=== PATIENT | female | born 1965 | race Caucasian/White ===

== ENCOUNTER → 2020-09-15 15:13 | Outpatient (CLI) | payer OTHER, SELFPAY ==
--- NOTE | 2020-09-15 15:22 | XR_ITS ---
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 The distal phalanges are missing of the 1st 2nd 3rd digits. No acute fracture or dislocation. There are osteoarthritic changes of the scapho trapezium joint. 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 No acute fracture. Dictated by: Malcolm Dia MD 09/16/2020 05:16 Malcolm Dia MD in [place] 09/16/2020 05:16
== END ==
PROVIDERS: PCP Emergency Medicine; Visit Provider Emergency Medicine
DX: M79.642 Pain in left hand (principal)
CPT/HCPCS: 73130

== ENCOUNTER 2020-10-18 15:00 | Outpatient (RCR) | payer BC, SELFPAY ==
--- NOTE | 2020-09-27 16:02 | HMH.OTOPEV ---
OT Inpatient Evaluation Rehab OT Outpatient Eval Start: 09/27/20 15:45 Freq: Status: Active Protocol: Document 09/27/20 15:45 JING (Rec: 09/27/20 16:02 ROBBELINDA [id number]) Electronically Signed By Ni Saldaña OT 09/27/20 15:45 Outpatient Therapy Subjective History Subjective History 55 year old female referred to OP OT skilled services for L shoulder weakness. Patient exhibit L shoulder to be lower than right. Patient verbalize pain during pushing and pulling items during work hours. 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 Chief Complaint Pain Symptom Type Ache Symptoms Relieved By Nothing Symptoms Aggravated By Physical Activity,Lifting Prior Functional Limitations None Current Functional Limitations Reaching,Lifting,Recreation Activity Symptom Description Intermittent Level of pain today (0-10) 0 Pain scale - at its best (0-10) 0 Pain scale - at its worst (0-10) 5 Shoulder/Elbow Eval Shoulder Objective Measurements Shoulder ROM Left Shoulder Abduction Active Range of 100 Motion (degrees) Shoulder Flexion Active Range of Motion 100 (degrees) Query Text: Shoulder External Rotation Active Range 60 of Motion (degrees) Shoulder Internal Rotation Active Range 60 of Motion (degrees) Shoulder MMT Right Shoulder Abduction Strength Grade 3- Fair- Shoulder Extension Strength Grade 3- Fair- Shoulder Flexion Strength Grade 3- Fair- Shoulder Horizontal Adduction Strength 3- Fair- Grade Infraspinatus/Teres Minor Strength Grade 3- Fair- Shoulder External Rotation Strength 3- Fair- Grade Shoulder Internal Rotation Strength 3- Fair- Grade Elbow Objective Measurements OT Outpatient Assessment Impairments Problems/Impairments Impaired Range of Motion, Impaired Strength,Impaired Endurance,Impaired Lifting, Subjective C/O Pain Prognosis Rehab Potential Good Clinical Impression Consistent with Diagnosis Yes Short Term Goals Number of Weeks 2 Increase Range of Motion Yes: AROM of L UE flex: 120;
--- NOTE | 2020-10-06 14:20 | HMH.OTOPEV ---
OT Inpatient Evaluation Rehab OT Outpatient Eval Start: 09/27/20 15:45 Freq: Status: Active Protocol: Document 09/27/20 15:45 ROBBELINDA (Rec: 09/27/20 16:02 ROBBELINDA [id number]) Electronically Signed By Ni Saldaña OT 09/27/20 15:45 Outpatient Therapy Subjective History Subjective History 55 year old female referred to OP OT skilled services for L shoulder weakness. Patient exhibit L shoulder to be lower than right. Patient verbalize pain during pushing and pulling items during work hours. 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 Patient verbalize insurance has denied MRI x2. However Patient is in need for MRI for suspected rotator cuff tear in L shoulder. Chief Complaint Pain Symptom Type Ache Symptoms Relieved By Nothing Symptoms Aggravated By Physical Activity,Lifting Prior Functional Limitations None Current Functional Limitations Reaching,Lifting,Recreation Activity Symptom Description Intermittent Level of pain today (0-10) 0 Pain scale - at its best (0-10) 0 Pain scale - at its worst (0-10) 5 Shoulder/Elbow Eval Shoulder Objective Measurements Shoulder ROM Left Shoulder Abduction Active Range of 100 Motion (degrees) Shoulder Flexion Active Range of Motion 100 (degrees) Query Text: Shoulder External Rotation Active Range 60 of Motion (degrees) Shoulder Internal Rotation Active Range 60 of Motion (degrees) Shoulder MMT Right Shoulder Abduction Strength Grade 3- Fair- Shoulder Extension Strength Grade 3- Fair- Shoulder Flexion Strength Grade 3- Fair- Shoulder Horizontal Adduction Strength 3- Fair- Grade Infraspinatus/Teres Minor Strength Grade 3- Fair- Shoulder External Rotation Strength 3- Fair- Grade Shoulder Internal Rotation Strength 3- Fair- Grade Elbow Objective Measurements OT Outpatient Assessment Impairments Problems/Impairments Impaired Range of Motion, Impaired Strength,Impaired Endurance,Impaired Lifting,
== END 2020-10-18 15:05 | disposition home or self-care (01) ==
LOC: OT 15:00
PROVIDERS: PCP Emergency Medicine; Visit Provider Emergency Medicine
DX: R29.898 Other symptoms and signs involving the musculoskeletal system; R53.1 Weakness
CPT/HCPCS: 97014; 97110; 97140; 97165; 97530; G0283

== ENCOUNTER → 2020-10-20 07:54 | Outpatient (CLI) | payer BC, SELFPAY ==
--- NOTE | 2020-10-20 07:55 | MR_ITS ---
PROCEDURE: MR BRACHIAL PLEXUS LT WO CON CLINICAL INDICATION: plexopathy PT C/O LEFT SIDED NECK AND ARM PAIN. PT DENIES INJURY OR TRAUMA. PT HAS A LEFT HAND DEFORMITY AND ORDER STATES PLEXOPATHY AND PT STATES DOCTOR SAID SHE HAD WINGING OF LEFT POSTERIOR NECK AND UPPER BACK. The COMPARISON: No exams were available for comparison TECHNIQUE: Routine multiplanar multi echo sequences are performed without gadolinium enhancement. FINDINGS: Patient has known multilevel cervical spondylosis as seen on the recent MRI of the cervical spine. Please see that report for detail. No evidence of mass abnormal fluid collection or other significant anomaly in the brachial plexus region IMPRESSION: Unremarkable MRI the left brachial plexus. Dictated by: Malcolm Dia MD 10/25/2020 09:18 Malcolm Dia MD in [place] 10/25/2020 09:18
--- NOTE | 2020-10-20 07:55 | MR_ITS ---
PROCEDURE: MR CERVICAL SPINE WO CON CLINICAL INDICATION: left arm pain, weakness PT C/O LEFT SIDED NECK AND ARM PAIN. PT DENIES INJURY OR TRAUMA. PT HAS A LEFT HAND DEFORMITY AND ORDER STATES PLEXOPATHY AND PT STATES DOCTOR SAID SHE HAD WINGING OF LEFT POSTERIOR NECK AND UPPER BACK. COMPARISON: No exams were available for comparison TECHNIQUE: Standard multiplanar multiecho sequences are performed without contrast. 3-D MIP and myelographic images are also rendered and reviewed FINDINGS: The craniocervical junction has an unremarkable appearance. There is slight reversal of the cervical lordosis. C2-C3: Unremarkable. C3-C4: Minimal bulging disc without impingement. The bulging disc is very slightly eccentric toward the left. C4-C5: Unremarkable. C5-C6: Degenerative disc disease with bulging disc which is eccentric toward the left. There is canal stenosis of 9 mm with minimal impingement and contour deformity upon the central and left aspect of the cord. There is moderate left lateral recess and foraminal narrowing. C6-C7: Degenerate disc disease with mild bulging disc with canal stenosis of 8 mm without impingement or flattening of the cord. There is moderate left-sided foraminal narrowing from uncovertebral hypertrophy and mild right foraminal narrowing. C7-T1: Unremarkable. IMPRESSION: 1. There is multilevel cervical spondylosis with slight reversal cervical lordosis. Please see above for detailed description at each level. 2. C5-C6: Degenerative disc disease with bulging disc which is eccentric toward the left. There is canal stenosis of 9 mm with minimal impingement and contour deformity upon the central and left aspect of the cord. There is moderate left lateral recess and foraminal narrowing. 3. C6-C7: Degenerate disc disease with mild bulging disc with canal stenosis of 8 mm without impingement or flattening of the cord. There is moderate left-sided foraminal narrowing from uncovertebral hypertrophy and mild right foraminal narrowing 4. No extruded herniated disc. Dictated by: Malcolm Dia MD 10/21/2020 19:42 Malcolm Dia MD in [place] 10/21/2020 19:42
== END ==
PROVIDERS: PCP Emergency Medicine; Visit Provider Specialist
DX: M79.622 Pain in left upper arm (principal); R29.898 Other symptoms and signs involving the musculoskeletal system
CPT/HCPCS: 72141; 73218; 76376

== ENCOUNTER 2020-12-08 09:01 | Outpatient (RCR) | payer BC, SELFPAY ==
--- NOTE | 2020-12-08 11:13 | HMH.PTOPEV ---
PT Outpatient Evaluation Rehab PT Outpatient Evaluation Start: 12/08/20 09:18 Freq: Status: Active Protocol: Document 12/08/20 10:47 ADDI (Rec: 12/08/20 11:13 PHORBERHANE [id number]) Electronically Signed By Jun Bobby, PT 12/08/20 10:47 Outpatient Therapy Subjective History Subjective History Pt is 55 yowf who presents with c/o pain anweakness in the L shld and UE x ~ 1 yr with insidious onset of symptoms. She reports hx of C- spine pain which has significantly decreased with activity changes. She reports he worst problems now are weakness with occupational lifting and pain in the L shld . SHe has congenital defect of the L hand that she attributes to changing her lifting habits over time with the L UE. She had MRI of C- spine performed which showed C3-4, C5-6, C6-7 disc bulges with DDD. EMG performed 2019 was unremarkable. Chief Complaint Pain,Weakness Symptom Type Ache Symptoms Relieved By Rest/Positioning Symptoms Aggravated By Physical Activity,Lifting Prior Functional Limitations None Current Functional Limitations Reaching,Lifting Symptom Description Intermittent,Activity Dependent Level of pain today (0-10) 0 Pain scale - at its worst (0-10) 7 Cervical Eval Palpation Cervical Muscles L Upper Trapezius Cervical/Thoracic Palpation Findings Tenderness MMT Left Deltoid (C5) 3+ Fair+ Biceps Brachii Strength Grade 4 Good Wrist Extension Strength Grade 4 Good Triceps Brachii Strength Grade 4 Good Wrist Flexion Strength Grade 4 Good Special Test C-Spine Foraminal Compression ([place]) Negative Left,Negative Right Test C-spine Verterbral Accessory Movements [facility] [place] that Elicit Symptoms C-Spine Foraminal Distraction Test Negative C-Spine Compression Test Negative Left,Negative Right Shoulder/Elbow Eval Shoulder Objective Measurements Shoulder MMT Left Shoulder Abduction Strength Grade 3+ Fair+ Shoulder External Rotation Strength 3+ Fair+ Grade Shoulder Internal Rotation Strength 3+ Fair+ Grade Supraspinatus Strength Grade 3 Fair Shoulder Special Tests
== END 2020-12-08 09:05 | disposition home or self-care (01) ==
LOC: PT 09:01
PROVIDERS: PCP Emergency Medicine; Visit Provider Specialist
DX: M54.2 Cervicalgia (principal); M54.12 Radiculopathy, cervical region; M62.81 Muscle weakness (generalized)
CPT/HCPCS: 97035; 97110; 97163

== ENCOUNTER → 2020-12-22 08:29 | Outpatient (CLI) | payer BC, SELFPAY ==
--- NOTE | 2020-12-22 08:33 | XR_ITS ---
PROCEDURE: XR SHOULDER LT MIN 2V CLINICAL INDICATION: left shoulder pain COMPARISON: No exams were available for comparison FINDINGS: No fracture or dislocation. No lytic or blastic change. There is normal mineralization. There are mild osteoarthritic changes at the glenohumeral joint and acromioclavicular joint. There is mild subacromial stenosis. Other findings:None. IMPRESSION: Mild osteoarthritis of the shoulder Dictated by: Malcolm Dia MD 12/22/2020 11:31 Malcolm Dia MD in [place] 12/22/2020 11:31
== END ==
PROVIDERS: PCP Emergency Medicine; Visit Provider Orthopaedic Surgery
DX: M25.512 Pain in left shoulder (principal)
CPT/HCPCS: 73030

== ENCOUNTER → 2021-01-18 13:59 | Outpatient (CLI) | payer BC, SELFPAY | PROVIDERS: PCP Emergency Medicine; Visit Provider Neurological Surgery | DX: Z20.822 Contact with and (suspected) exposure to COVID-19 (principal) | CPT/HCPCS: U0003 ==

== ENCOUNTER → 2021-03-11 10:10 | Outpatient (CLI) | payer BC, SELFPAY ==
[2021-03-11 10:34] LABS: Basophils % 0.2 % (0.1-2.0); Eosinophils # 0.1 K/mm3 (0.0-0.4); Eosinophils % 0.8 % (0.1-12.0); Hematocrit 39.7 % (37.0-47.0); Hemoglobin 13.2 g/dL (12.2-16.2); Lymphocytes # 1.6 K/mm3 (0.7-4.5); Lymphocytes % 17.8 % (10-50); Mean Corpuscular HGB Conc 33.2 g/dL (31.8-35.4); Mean Corpuscular Hemoglobin 30.7 pg (27.0-31.2); Mean Corpuscular Volume 92.4 fl (81-99); Mean Platelet Volume 6.9 fl (7.4-10.4); Monocytes # 0.6 K/mm3 (0.1-1.0); Neutrophils # 6.9 K/mm3 (1.8-7.8); Neutrophils % 75.2 % (37.0-80.0); Platelet Count 400 K/mm3 (142-424); White Blood Count 9.1 K/mm3 (4.8-10.8)
[2021-03-11 11:31] LABS: Chloride 102 mmol/L (98-107); Potassium 5.1 mmoL/L (3.5-5.1); Sodium 138 mmol/L (136-145)
[2021-03-11 11:34] LABS: Anion Gap 12.1 mEq/L (5-15); Blood Urea Nitrogen 16 mg/dl (7-17); Carbon Dioxide 29 mmol/L (22.0-30.0); Estimated Glomerular Filt Rate 74 ml/min (>60); GFR (African American) 89 ML/MIN (>60)
[2021-03-11 11:35] LABS: Calcium 10.2 mg/dl (8.4-10.2); Glucose 99 mg/dl (74-100)
== END ==
PROVIDERS: Visit Provider Orthopaedic Surgery
DX: Z01.818 Encounter for other preprocedural examination (principal); I10 Essential (primary) hypertension; G89.29 Other chronic pain; M25.512 Pain in left shoulder
CPT/HCPCS: 36415; 80048; 85025

== ENCOUNTER → 2021-03-22 11:15 | Outpatient (CLI) | payer BC, SELFPAY ==
[2021-03-22 12:17] LABS: Basophils % 0.5 % (0.1-2.0); Eosinophils # 0.1 K/mm3 (0.0-0.4); Eosinophils % 1.3 % (0.1-12.0); Hematocrit 42.6 % (37.0-47.0); Hemoglobin 13.9 g/dL (12.2-16.2); Lymphocytes # 2.4 K/mm3 (0.7-4.5); Lymphocytes % 39.4 % (10-50); Mean Corpuscular HGB Conc 32.7 g/dL (31.8-35.4); Mean Corpuscular Volume 91.7 fl (81-99); Mean Platelet Volume 6.6 fl (7.4-10.4); Monocytes # 0.5 K/mm3 (0.1-1.0); Monocytes % 8.3 % (1.7-9.3); Neutrophils # 3.1 K/mm3 (1.8-7.8); Neutrophils % 50.4 % (37.0-80.0); Platelet Count 414 K/mm3 (142-424); Red Blood Count 4.64 M/mm3 (4.20-5.40); White Blood Count 6.1 K/mm3 (4.8-10.8)
[2021-03-22 12:41] LABS: Chloride 101 mmol/L (98-107); Sodium 137 mmol/L (136-145)
[2021-03-22 12:42] LABS: Potassium 5.1 mmoL/L (3.5-5.1)
[2021-03-22 12:44] LABS: Blood Urea Nitrogen 19 mg/dl (7-17); Estimated Glomerular Filt Rate 74 ml/min (>60); GFR (African American) 89 ML/MIN (>60)
[2021-03-22 12:45] LABS: Anion Gap 13.1 mEq/L (5-15); Carbon Dioxide 28 mmol/L (22.0-30.0); Glucose 73 mg/dl (74-100)
[2021-03-22 12:45] LABS: Alanine Aminotransferase 19 U/L (12-78); Albumin Level 4.8 g/dl (3.5-5.0); Alkaline Phosphatase 90 U/L (38-126); Aspartate Amino Transferase 31 U/L (14-36); Bilirubin,Direct 0.3 mg/dl (0.0-0.4); Bilirubin,Indirect 0.3 mg/dL (0.0-0.9); Bilirubin,Total 0.6 mg/dl (0.2-1.3); Bilirubin,Unconjugated 0.4 mg/dL (0.0-1.1); Iron 139 ug/dL (37-170); Total Protein,Serum 7.4 g/dl (6.3-8.2)
[2021-03-22 12:55] LABS: Total Iron Binding Capacity 300 ug/dL (265-497)
[2021-03-22 13:21] LABS: Ferritin 48.7 ng/ml (11.1-264)
[2021-03-23 13:49] LABS: Coronavirus 19 IgG Antibody Positive (Negative); Coronavirus 19 IgM Antibody Negative (Negative)
[2021-03-23 14:19] LABS: Transferrin 264 mg/dL (192-364)
== END ==
PROVIDERS: Orthopaedic Surgery; Visit Provider Physician Assistant
DX: Z01.818 Encounter for other preprocedural examination (principal); Z20.822 Contact with and (suspected) exposure to COVID-19; R05 Cough; I10 Essential (primary) hypertension; Z83.49 Family history of other endocrine, nutritional and metabolic diseases
CPT/HCPCS: 36415; 80048; 80076; 82728; 83540; 83550; 84466; 85025; 86328; U0003

== ENCOUNTER 2021-03-24 06:09 | Day surgery (SDC) | payer BC, SELFPAY ==
[2021-03-22 15:21] VITALS: BMI 26.6
[2021-03-24] VITALS (11 sets, daily range): BP systolic 149–169; BP diastolic 86–95; PULSE 91–98; RESP 12–18; TEMP 36.2–43; O2SAT 92–100
--- NOTE | 2021-03-24 08:51 | HMH.ANESCL ---
[facility] Anesthesia Checklist - Structural Data Admitted From: Home Planned Operative Procedure/s: l shoulder arthroscopy Consent for Planned Operative Procedure(s) Verified: Yes - Additional verifications Anesthesia Reactions: No Hx Blood Transfusions: No Blood Transfusion Reaction: No - Airway Assessment C-Spine Mobility Assessed: Yes TMJ Mobility Assessed: Yes Dentition: Good Dentition - Neurological Assessment Level of Consciousness: Awake, Alert, Appropriate - Anesthesia Plan Anesthesia Risk discussed: Yes Anesthesia Plan: Verified ASA Class: II Anesthesia Type: General w/block [facility] History I have reviewed the patient's past medical history: Yes Medical History: Reports:: Anxiety, Depression, Hypertension Denies:: Cancer, Diabetes Mellitus Type 1, Diabetes Mellitus Type 2, Internal Pacemaker, MRSA, Seizures *Have you ever received a pneumonia vaccine?: No *Have you received a flu vaccine this season?: Yes Other Medical History: Denies: Blood Transfusion Reaction Anesthesia experience/problems:: none Other Surgeries: Yes: No Previous Surgery, Colonoscopy, Other. No: Pacemaker Amputation: Yes (left hand fingers) Fractures: No - *Social History Last grade of school completed: Some college Smoking Status: Never smoker Alcohol Intake: current Alcohol Intake Frequency:: a few times a month Substance Use Type: denies use *Occupational Status:: employed Housing: house Household Members: spouse *Travel in the last 8 weeks: None - Psychiatric History Pschychiatric History:: Reports:: Anxiety, Depression Family Hx:: Cancer, Hypertension, Diabetes
--- NOTE | 2021-03-24 10:58 | HMH.ANESI ---
[facility] Anesthesia Record Part I Intake, IV Amount: 1,800 Estimated blood loss (mL): 0 Urine output (mL): 0 Blood Pressure: 160/94 SaO2: 95 Pulse Rate: 97 Respiratory Rate: 12 Temperature: 97.5 F Patient is:: Awake, Stable Stable to PACU at:: 10:55
--- NOTE | 2021-03-24 12:20 | SUR.PHASEII ---
PT'S L EYE STILL IRRITATED. NO OBJECT SEEN IN EYE OR REASON FOR IRRITATION. PT WILL MONITOR AT HOME.
--- NOTE | 2021-03-24 14:31 | HMH.OPNOTE ---
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, acromioclavicular joint arthritis Post-op Diagnosis:: L shoulder: 1- tendinopathy of long head of biceps tendon 2- type 1 SLAP tear 3- subacromial bursitis/capsulitis 4- acromioclavicular joint arthritis 5- rotator cuff tear; small, high-grade partial thickness split tear of supraspinatus Procedure performed:: L shoulder arthroscopy with: 1- biceps tenotomy 2- subacromial decompression and acromioplasty 3- arthroscopic distal clavicle excision 4- arthroscopic rotator cuff repair Surgeon:: Deonna Gould MD Assistant Professor Of Life Sciences(s):: Yudith Smith HOSPITAL SCIENTIST:: Trevin Best Anesthesia: GETA, regional (interscalene block) Estimated blood loss (mL): 10 Clinical Note:: 55-year-old [id number] female with chronic L shoulder pain present for over 1 year and refractory to non-operative therapy consisting of physical therapy, ice, NSAIDs and activity modification. Additionally, she underwent ACDF recently for radiculopathy caused by cervical spine pathology; this did not completely relieve her pain and the shoulder became the primary source of pain. MRI revealed degenerative changes of the acromioclavicular joint as well as marked atrophic tendinopathy of the rotator cuff, particularly the supraspinatus tendon; no discrete tear seen on MRI. I discussed treatment options with the patient, who wished to pursue surgery at this time. The patient has been cleared by Dr. Caceres after her cervical spine procedure to proceed with shoulder surgery. I discussed the procedure with the patient including the intraoperative goals/technique, expected postoperative rehab and long-term outcome. My recommendation would be left shoulder arthroscopy, subacromial decompression with conservative acromioplasty as needed, biceps tenotomy versus tenodesis based upon intraoperative examination of the tendon, distal clavicle excision. Additionally, the rotator cuff will be examined and treated accordingly. She has atrophic tendinopathy on MRI and if high-grade partial tearing is seen at the time of surgery repair versus tear completion and full-thickness repair may be required. I discussed the scapular winging that she is currently experiencing and that this will be something that needs to be treated with physical therapy postoperatively. If this does not respond to therapy, neurologic issue may need to be investigated as she has had cervical spine issues and recently underwent cervical fusion. I discussed the risks of surgery with the patient, including bleeding, infection, fracture, neurovascular damage, persistent pain despite surgery, persistent weakness despite surgery, postoperative stiffness, need for further surgeries in the future. The patient vocalized understanding and provided informed consent for the procedure. Operative findings:: implants: Arthrex 4.75mm biocomposite SwiveLock C anchor x1 FiberTape x1 Operative note:: The patient was identified in preoperative holding and the L shoulder signed by myself. Consent was reviewed with the patient and all questions answered. Interscalene nerve block was performed by anesthesia and the patient was taken to the OR. She was placed supine on the operative table, 1 g Ancef infused and general anesthesia induced. The patient was then positioned into the beachchair position with the head in a neutral position and well supported with all bony prominences padded. The L shoulder was then prepped and draped in the usual sterile fashion for shoulder arthroscopy. Timeout was performed, identifying the correct patient, correct procedure, and correct site. I began the procedure by making a standard posterior viewing portal through which a 30 degree arthroscope was inserted into the L shoulder. I began with a diagnostic scope of the glenohumeral joint. A moderate amount of superior labral fraying was noted and a type I SLAP tear. Us
--- NOTE | 2021-03-25 07:51 | P.PN_ITS ---
[facility] Anesthesia Record Part II Discharge Time: 11:25 Destination: Surgical Day Care (OP Surgery) PACU nurse assessment reviewed?: Yes Patient Condition:: Good Anesthesia Complications:: None Swallowing reflex intact?: Yes Cyanosis?: No Blood Pressure: 158/95 Pulse Rate: 94 Temperature: 97.5 F Mental Status: Alert & Oriented Pain level:: 0 Nausea and/or vomitting:: None Intake, IV Amount: 0
[2021-03-25 07:52] VITALS: BP 158/95; PULSE 94; TEMP 36.4
== END 2021-03-24 12:20 | disposition home or self-care (01) ==
LOC: OR 06:09
PROVIDERS: PCP Emergency Medicine; Visit Provider Orthopaedic Surgery
PROC: (CPT 29805; principal; 2021-03-24 07:30)
DX: M75.112 Incomplete rotator cuff tear or rupture of left shoulder, not specified as traumatic (principal); M19.012 Primary osteoarthritis, left shoulder; M75.52 Bursitis of left shoulder; M75.22 Bicipital tendinitis, left shoulder; Z79.899 Other long term (current) drug therapy
CPT/HCPCS: 29827; 29828; 29826; 96374; C1713; C9290; J2405

== ENCOUNTER → 2021-06-22 10:08 | Outpatient (CLI) | payer BC, SELFPAY ==
--- NOTE | 2021-06-22 10:13 | XR_ITS ---
PROCEDURE: XR SHOULDER LT MIN 2V CLINICAL INDICATION: s/p left shoulder scope Follow-up surgery COMPARISON: CR XR SHOULDER LT MIN 2V from 12/22/2020 FINDINGS: The spurring along the inferior aspect of the AC joint appears to been removed. No fracture or dislocation. Minimal osteoarthritic change of the glenohumeral joint.. IMPRESSION: Status post AC osteophyte removal with mild osteoarthritic change of the glenohumeral joint Dictated by: Malcolm Dia MD 06/22/2021 11:50 Malcolm Dia MD in [place] 06/22/2021 11:50
== END ==
PROVIDERS: PCP Emergency Medicine; Visit Provider Orthopaedic Surgery
DX: Z09 Encounter for follow-up examination after completed treatment for conditions other than malignant neoplasm (principal)
CPT/HCPCS: 73030

== ENCOUNTER → 2021-06-29 12:34 | Outpatient (CLI) | payer BC, SELFPAY ==
[2021-06-29 14:06] LABS: Blood Urea Nitrogen 17 mg/dl (7-17); Estimated Glomerular Filt Rate 57 ml/min (>60); GFR (African American) 69 ML/MIN (>60)
== END ==
PROVIDERS: Visit Provider Orthopaedic Surgery
DX: M25.512 Pain in left shoulder (principal)
CPT/HCPCS: 36415; 82565; 84520

== ENCOUNTER → 2021-06-30 09:06 | Outpatient (CLI) | payer BC, SELFPAY ==
--- NOTE | 2021-06-30 09:06 | MR_ITS ---
PROCEDURE INFORMATION: Exam: MR Left Upper Extremity Joint Without and With Contrast; Shoulder Exam date and time: 06/30/2021 9:06 AM Age: 55 years old Clinical indication: Pain; Shoulder; Left; Prior surgery; Surgery date: 1-6 months; Additional info: Lt shoulder pain; S/P shoulder scope 03/24/21. HX surgery March 24 rotator cuff. Limited rom. Weakness in arm. No injury or trauma. Prior MR 12-24-20. 14ml prohance given. Lot: [id number] exp: May 2023 bun: 17 cre: 1.0 gfr: 57 TECHNIQUE: Imaging protocol: MR of the Left upper extremity without and with contrast. Exam focused on the shoulder. Contrast material: PROHANCE; Contrast volume: 14 ml; Contrast route: IV; COMPARISON: 1. MR UE SHOULDER LEFT W/O CON [id number] 12/24/2020 4:55 PM (no report; preoperative) 2. CR XR SHOULDER LT MIN 2V 06/22/2021 10:23 AM 3. CR XR SHOULDER LT MIN 2V 12/22/2020 8:38 AM FINDINGS: Limitations: Severe external rotation of the shoulder producing nonstandard imaging planes. Bones and cartilage: Surgical tracks in the humeral head are consistent with prior rotator cuff repair. The undersurface of the acromion is flattened, suggestive of prior acromioplasty. Mild bone marrow edema involving the humeral head is within normal limits for the recent postoperative state. Joint spaces: Flattening of the acromioclavicular joint undersurface suggests prior partial acromioclavicular joint resection. Moderate edema involving the partially resected distal clavicle would not be unusual in the relatively recent time since surgery. A moderate effusion involves the glenohumeral joint. Joint fluid extends through the full thickness rotator cuff tear into the subacromial-subdeltoid bursa. Glenoid labrum: Heterogeneity of the labrum signal may be due to degeneration or debridement. Supraspinatus tendon: A large full-thickness retear involves the previously repaired supraspinatus tendon. The tear involves approximately 80% of the tendon. The tendon is retracted to the mid humeral head level. Infraspinatus tendon: A full-thickness tear involves the upper one-third of the infraspinatus tendon with less than 1 cm of retraction. Subscapularis tendon: Severe tendinosis involves the subscapularis tendon. Teres minor tendon: No tear or significant tendinosis involves the teres minor tendon. Tendon of biceps brachii: The intra-articular portion of the long head of the biceps tendon is not visualized. This may represent tenodesis, unusually severe tendinosis or full-thickness tear. Glenohumeral ligaments: Edema in the axillary recess region including the inferior glenohumeral ligament is not unusual in the recent postoperative state. Muscles: The infraspinatus muscle demonstrates grade 1 (out of 4) muscle atrophy. Mild edema involves the supraspinatus muscle. The remainder of the rotator cuff musculature demonstrates no significant atrophy or edema. There are normal postoperative changes in the deltoid muscle. Soft tissues: There are normal postoperative punctate foci of micrometallic artifact in the soft tissues. IMPRESSION: 1. Interval postoperative changes of the shoulder. 2. Full-thickness supraspinatus tendon retear involving approximately 80% of the tendon with retraction to the mid humeral head level and no significant muscle atrophy. 3. Full-thickness infraspinatus tendon tear involving the superior one third of the tendon with less than 1 cm retraction and minimal muscle atrophy. 4. Nonvisualization of the intra-articular portion of the long head of the biceps tendon, which may represent tenodesis, unusually severe tendinosis or full-thickness tear. 5. Mary Kate
== END ==
PROVIDERS: PCP Emergency Medicine; Visit Provider Orthopaedic Surgery
DX: M25.512 Pain in left shoulder (principal)
CPT/HCPCS: 73223; A9576

== ENCOUNTER → 2022-04-04 11:43 | Outpatient (CLI) | payer BC, SELFPAY ==
--- NOTE | 2022-04-04 11:49 | XR_ITS ---
FINAL REPORT CLINICAL HISTORY: right ankle pain FINDINGS: AP, oblique, and lateral views of the right ankle were obtained. There is no prior exam for comparison. There is no fracture or dislocation. The ankle mortise is intact. Soft tissues are normal. IMPRESSION: No acute osseous abnormality of the right ankle. Reviewed, Interpreted and Dictated by Hannah Oquendo MD Transcribed by Alecia Sterling Authenticated by Hannah Oquendo MD on 04/04/2022 01:56:[address] [facility]
--- NOTE | 2022-04-04 11:49 | XR_ITS ---
FINAL REPORT CLINICAL HISTORY: right ankle pain FINDINGS: RIGHT FOOT Three views were obtained. There is a lucency through an inferior calcaneal spur, slightly subtle fracture is not excluded. No acute soft tissue abnormality is identified. IMPRESSION: Lucency through a calcaneal spur, subtle fracture is not excluded. Consider MRI. Reviewed, Interpreted and Dictated by Hannah Oquendo MD Transcribed by Alecia Sterling Authenticated by Hannah Oquendo MD on 04/04/2022 01:56:51 PM [facility]
[2022-04-04 12:50] LABS: Basophils # 0.2 K/mm3 (0-0.2); Basophils % 2.4 % (0.1-2.0); Eosinophils # 0.1 K/mm3 (0.0-0.4); Eosinophils % 1.4 % (0.1-12.0); Hematocrit 41.4 % (37.0-47.0); Hemoglobin 13.4 g/dL (12.2-16.2); Lymphocytes % 32.9 % (10-50); Mean Corpuscular HGB Conc 32.4 g/dL (31.8-35.4); Mean Corpuscular Hemoglobin 31.3 pg (27.0-31.2); Mean Corpuscular Volume 96.4 fl (81-99); Monocytes # 0.5 K/mm3 (0.1-1.0); Monocytes % 7.6 % (1.7-9.3); Neutrophils # 3.4 K/mm3 (1.8-7.8); Neutrophils % 55.6 % (37.0-80.0); Platelet Count 380 K/mm3 (142-424); Red Blood Count 4.29 M/mm3 (4.20-5.40); Red Cell Distribution Width 13.1 % (11.5-17.5); White Blood Count 6.1 K/mm3 (4.8-10.8)
[2022-04-04 12:59] LABS: Alanine Aminotransferase 24 U/L (12-78); Albumin Level 4.3 g/dl (3.5-5.0); Albumin/Globulin Ratio 1.7 (1.1-1.8); Alkaline Phosphatase 112 U/L (38-126); Anion Gap 8.2 mEq/L (5-15); Aspartate Amino Transferase 32 U/L (14-36); Blood Urea Nitrogen 20 mg/dl (7-17); Calcium 9.1 mg/dl (8.4-10.2); Carbon Dioxide 29 mmol/L (22.0-30.0); Chloride 101 mmol/L (98-107); Chol/HDL Ratio 2.3 (1-3.5); Cholesterol 230 mg/dl (140-200); Estimated Glomerular Filt Rate 74 ml/min (>60); GFR (African American) 89 ML/MIN (>60); Globulin 2.5 g/dL (1.3-3.2); Glucose 92 mg/dl (74-100); HDL Cholesterol 101 mg/dl (40-60); Potassium 4.2 mmoL/L (3.5-5.1); Sodium 134 mmol/L (136-145); Total Protein,Serum 6.8 g/dl (6.3-8.2); Triglycerides 118 mg/dl (30-150); VLDL Cholesterol 24 mg/dL (0-40)
[2022-04-04 13:01] LABS: Bilirubin,Total < 0.1 mg/dl (0.2-1.3)
[2022-04-04 13:10] LABS: Direct LDL Cholesterol 98.97 mg/dL (100-129)
[2022-04-04 13:19] LABS: 25-OH Vitamin D, Total 56.1 ng/mL (30-100)
[2022-04-04 13:29] LABS: Thyroid Stimulating Hormone 1.62 uIU/mL (0.465-4.68)
== END ==
PROVIDERS: PCP Physician Assistant; Visit Provider Physician Assistant
DX: M25.571 Pain in right ankle and joints of right foot (principal); I10 Essential (primary) hypertension; Z79.899 Other long term (current) drug therapy
CPT/HCPCS: 36415; 73610; 73630; 80053; 80061; 82306; 84443; 85025

== ENCOUNTER → 2022-06-01 14:57 | Outpatient (CLI) | payer BC, SELFPAY ==
--- NOTE | 2022-06-01 15:07 | XR_ITS ---
FINAL REPORT CLINICAL HISTORY: left knee pain and swelling FINDINGS: LEFT KNEE Four views of the left knee were obtained. There is no acute fracture or dislocation. Visualized joint spaces are normally aligned. There is mild degenerative change. There is a small joint effusion. IMPRESSION: Mild degenerative change. Small joint effusion. Reviewed, Interpreted and Dictated by Zach Ornelas III, MD Transcribed by Floresita Reyes Authenticated and . [facility]
== END ==
PROVIDERS: PCP Physician Assistant; Visit Provider Physician Assistant
DX: M25.562 Pain in left knee (principal); M25.462 Effusion, left knee
CPT/HCPCS: 73564

== ENCOUNTER → 2022-06-12 13:45 | Outpatient (CLI) | payer BC, SELFPAY ==
--- NOTE | 2022-06-12 13:45 | MR_ITS ---
FINAL REPORT CLINICAL HISTORY: Knee injury. knee instability [id number] ago. medial sided knee pain. no injury or trauma. FINDINGS: Multiplanar MR imaging of the right knee was performed without contrast. The medial and lateral menisci are intact without evidence of meniscal tear. The anterior cruciate ligament is not well seen and likely chronically torn. The posterior cruciate ligament is intact. The medial collateral ligament and lateral ligamentous complex are intact. The patellar and quadriceps tendons are intact. There is a nondisplaced fracture of the posterior aspect of the medial tibial plateau with surrounding bone marrow edema. There is moderate patellar chondromalacia. A small joint effusion is seen. The musculature is intact. No soft tissue mass or cyst is identified. IMPRESSION: Nondisplaced fracture of the posterior medial tibial plateau with surrounding bone marrow edema. Anterior cruciate ligament not well visualized and likely chronically torn. Moderate patellar chondromalacia. Small joint effusion. Reviewed, Interpreted and Dictated by Zach Ornelas III, MD Transcribed by Michele Palmer Authenticated and [facility]
== END ==
PROVIDERS: PCP Physician Assistant; Visit Provider Physician Assistant
DX: S89.92XA Unspecified injury of left lower leg, initial encounter (principal)
CPT/HCPCS: 73721

== ENCOUNTER → 2022-08-31 15:17 | Outpatient (CLI) | payer BC, SELFPAY ==
--- NOTE | 2022-08-31 15:17 | MM_ITS ---
PROCEDURE INFORMATION: Exam: MG Bilateral Screening 3D Mammography Exam date and time: 08/31/2022 3:13 PM Age: 57 years old Clinical indication: Screening examination TECHNIQUE: Imaging protocol: Bilateral Screening tomosynthesis and 2D mammography including computer-aided detection (CAD) when performed. COMPARISON: 1. MG MAMMO SCREENING DIGITAL TOMOSYNTHESIS BILATERAL W CAD 08/30/2021 12:47 PM 2. MG MAMMO SCREENING DIGITAL TOMOSYNTHESIS BILATERAL W CAD 08/26/2020 4:09 PM FINDINGS: MAMMOGRAPHY: Breast composition: The breasts are heterogeneously dense, which may obscure small masses. Mass: None. Architectural distortion: None. Calcifications: No suspicious calcifications. Asymmetric density: None. Skin thickening: None. Axillary adenopathy: None. IMPRESSION: No mammographic evidence of malignancy. Annual screening is recommended unless otherwise clinically indicated. ASSESSMENT: BI-RADS Category 1: Negative
== END ==
PROVIDERS: PCP Physician Assistant; Visit Provider Physician Assistant
DX: Z12.31 Encounter for screening mammogram for malignant neoplasm of breast (principal)
CPT/HCPCS: 77063; 77067

== ENCOUNTER → 2022-11-20 16:40 | Outpatient (CLI) | payer BC, SELFPAY ==
--- NOTE | 2022-11-20 16:47 | MR_ITS ---
PROCEDURE INFORMATION: Exam: MR Left Lower Extremity Joint Without Contrast, Knee Exam date and time: 11/20/2022 4:53 PM Age: 57 years old Clinical indication: Pain; Knee; Left; Additional info: Lt knee efffusion mcl strain/acl tear. Spalding a pop in knee 3 weeks ago. Medial sided knee pain. Knee instability. TECHNIQUE: Imaging protocol: Magnetic resonance imaging of the Left lower extremity joint without contrast. Exam focused on the knee. COMPARISON: MR KNEE LT WO CON 06/12/2022 1:53 PM FINDINGS: Bones/joints: Nondisplaced fracture posterior aspect lateral tibial plateau with mild surrounding edema. Nondisplaced fracture head of fibula with mild surrounding edema. Mild bone bruise within lateral femoral condyle. Minimal bone bruise within medial femoral condyle. Mild degenerative changes of patellofemoral compartment, characterized by signal changes/fibrillation of articular cartilage. Fluid: Small joint effusion. No Jensen's cyst. Medial meniscus: Blunting free edge of medial meniscus. Lateral meniscus: Horizontal tear body of lateral meniscus. Anterior cruciate ligament: Nonvisualization of anterior cruciate ligament. Posterior cruciate ligament: Intact. Medial capsule and supporting structures: Mild high T2 signal superficial to intact medial collateral ligament. Lateral capsule and supporting structures: Mild high T2 signal/discontinuity of fibular collateral ligament. Extensor mechanism of knee: Intact. Muscles: Minimal edema within musculature. Soft tissues: Mild edema within subcutaneous tissues. Other findings: No dislocation. IMPRESSION: 1. Proximal tibial and fibular fractures. 2. Distal femoral bone bruises. 3. Lateral meniscus tear. 4. Grade 1 MCL injury. 5. Fibular collateral ligament tear. 6. ACL tear, chronic.
== END ==
PROVIDERS: PCP Physician Assistant; Visit Provider Orthopaedic Surgery
DX: M25.562 Pain in left knee (principal); S83.412D Sprain of medial collateral ligament of left knee, subsequent encounter; S83.512D Sprain of anterior cruciate ligament of left knee, subsequent encounter
CPT/HCPCS: 73721

== ENCOUNTER → 2023-01-17 14:12 | Outpatient (CLI) | payer BC, SELFPAY ==
[2023-01-17 15:57] LABS: Thyroid Stimulating Hormone 1.95 uIU/mL (0.465-4.68)
[2023-01-19 08:52] LABS: Estradiol 13.2 pg/mL (.); FSH 89.6 mIU/mL (.)
== END ==
PROVIDERS: PCP Physician Assistant; Visit Provider Obstetrics & Gynecology
DX: N95.1 Menopausal and female climacteric states (principal)
CPT/HCPCS: 36415; 82670; 83001; 84443

== ENCOUNTER → 2023-05-03 16:42 | Outpatient (CLI) | payer BC, SELFPAY ==
[2023-05-03 18:24] LABS: Basophils % 0.3 % (0.1-2.0); Eosinophils # 0.1 K/mm3 (0.0-0.4); Eosinophils % 0.7 % (0.1-12.0); Hematocrit 42.4 % (37.0-47.0); Hemoglobin 13.6 g/dL (12.2-16.2); Lymphocytes # 2.2 K/mm3 (0.7-4.5); Lymphocytes % 24.8 % (10-50); Mean Corpuscular HGB Conc 32.2 g/dL (31.8-35.4); Mean Corpuscular Hemoglobin 30.3 pg (27.0-31.2); Mean Corpuscular Volume 94.3 fl (81-99); Mean Platelet Volume 8.3 fl (7.4-10.4); Monocytes # 0.6 K/mm3 (0.1-1.0); Neutrophils # 5.9 K/mm3 (1.8-7.8); Neutrophils % 67.2 % (37.0-80.0); Platelet Count 398 K/mm3 (142-424); Red Cell Distribution Width 13.2 % (11.5-17.5); White Blood Count 8.8 K/mm3 (4.8-10.8)
[2023-05-03 19:36] LABS: Alanine Aminotransferase 20 U/L (12-78); Albumin Level 5.1 g/dl (3.5-5.0); Albumin/Globulin Ratio 1.6 (1.1-1.8); Alkaline Phosphatase 81 U/L (38-126); Anion Gap 19.4 mEq/L (5-15); Aspartate Amino Transferase 32 U/L (14-36); Blood Urea Nitrogen 20 mg/dl (7-17); Carbon Dioxide 26 mmol/L (22.0-30.0); Chloride 96 mmol/L (98-107); Cholesterol 307 mg/dl (140-200); Estimated Glomerular Filt Rate 57 ml/min (>60); GFR (African American) 69 ML/MIN (>60); Globulin 3.1 g/dL (1.3-3.2); Glucose 72 mg/dl (74-100); Potassium 4.4 mmoL/L (3.5-5.1); Sodium 137 mmol/L (136-145); Total Protein,Serum 8.2 g/dl (6.3-8.2); Triglycerides 77 mg/dl (30-150); VLDL Cholesterol 15 mg/dL (0-40)
[2023-05-03 19:48] LABS: Direct LDL Cholesterol 106.64 mg/dL (100-129)
[2023-05-03 19:52] LABS: 25-OH Vitamin D, Total 63.2 ng/mL (30-100)
[2023-05-03 19:55] LABS: HDL Cholesterol 157 mg/dl (40-60)
[2023-05-03 20:06] LABS: Thyroid Stimulating Hormone 0.99 uIU/mL (0.465-4.68)
== END ==
PROVIDERS: PCP Physician Assistant; Visit Provider Physician Assistant
DX: R55 Syncope and collapse (principal); Z79.899 Other long term (current) drug therapy
CPT/HCPCS: 80053; 80061; 82306; 84443; 85025; 93225; 93226

== ENCOUNTER → 2023-05-21 10:08 | Outpatient (CLI) | payer BC, SELFPAY ==
--- NOTE | 2023-05-21 10:39 | CT_ITS ---
FINAL REPORT CLINICAL HISTORY: syncope FINDINGS: Axial images of the head were obtained without contrast. Coronal reformatted images were also obtained.This study was performed with techniques to keep radiation doses as low as reasonably achievable (ALARA). Individualized dose reduction techniques using automated exposure control or adjustment of mA and/or kV according to the patient''s size were employed. There is no evidence of intracranial hemorrhage or mass. The ventricular size is within normal limits. There is no evidence of shift of the midline structures. No abnormal extra axial fluid collection is identified. No skull abnormality is seen on the bone window images. IMPRESSION: No acute intracranial abnormality. Reviewed, Interpreted and Dictated by Zach Ornelas III, MD Transcribed by Gloria Chakraborty Authenticated and [facility]
== END ==
LOC: RT 10:08
PROVIDERS: PCP Physician Assistant; Visit Provider Physician Assistant
DX: R55 Syncope and collapse (principal)
CPT/HCPCS: 70450; 93306

== ENCOUNTER 2024-01-14 14:35 | Outpatient (CLI) | payer MEDICARE, SELFPAY ==
--- NOTE | 2024-01-14 14:36 | MM_ITS ---
PROCEDURE INFORMATION: Exam: MG Bilateral Screening 3D Mammography Exam date and time: 01/14/2024 2:35 PM Age: 58 years old Clinical indication: Screening examination. Her sister had breast cancer in her 40s and her maternal grandmother had breast cancer. History of benign breast biopsies. TECHNIQUE: Imaging protocol: Bilateral Screening tomosynthesis and 2D mammography including computer-aided detection (CAD) when performed. COMPARISON: 1. MG MM DIG SCREENING MAMM BI W/CAD 08/31/2022 3:13 PM 2. MG MAMMO SCREENING DIGITAL TOMOSYNTHESIS BILATERAL W CAD 08/30/2021 12:47 PM 3. MG MAMMO SCREENING DIGITAL TOMOSYNTHESIS BILATERAL W CAD 08/26/2020 4:09 PM 4. MG MAMMO SCREENING DIGITAL TOMOSYNTHESIS BILATERAL W CAD 04/11/2019 9:52 AM FINDINGS: MAMMOGRAPHY: Breast composition: The breasts are heterogeneously dense, which may obscure small masses. Mass: None. Architectural distortion: None. Calcifications: No suspicious calcifications. Asymmetric density: None. Skin thickening: None. Axillary adenopathy: None. IMPRESSION: No mammographic evidence of malignancy. Annual screening is recommended unless otherwise clinically indicated. Given the reported risk factors coupled with the patient's breast density, a breast cancer risk assessment may prove useful for further evaluation. ASSESSMENT: BI-RADS Category 1: Negative
== END 2024-01-14 23:59 ==
LOC: RAD 14:36
PROVIDERS: PCP Physician Assistant; Visit Provider Physician Assistant
DX: Z12.31 Encounter for screening mammogram for malignant neoplasm of breast (principal)
CPT/HCPCS: 77063; 77067

== ENCOUNTER 2024-02-11 18:06 | Outpatient (CLI) | payer MEDICARE, SELFPAY ==
[2024-02-11 18:23] LABS: Basophils # 0.1 K/mm3 (0-0.2); Basophils % 0.8 % (0.1-2.0); Eosinophils # 0.1 K/mm3 (0.0-0.4); Eosinophils % 2.4 % (0.1-12.0); Hematocrit 44.6 % (37.0-47.0); Hemoglobin 14.2 g/dL (12.2-16.2); Lymphocytes % 33.3 % (10-50); Mean Corpuscular HGB Conc 31.9 g/dL (31.8-35.4); Mean Corpuscular Hemoglobin 31.4 pg (27.0-31.2); Mean Corpuscular Volume 98.4 fl (81-99); Mean Platelet Volume 7.3 fl (7.4-10.4); Monocytes # 0.4 K/mm3 (0.1-1.0); Monocytes % 6.5 % (1.7-9.3); Neutrophils # 3.4 K/mm3 (1.8-7.8); Platelet Count 367 K/mm3 (142-424); Red Blood Count 4.53 M/mm3 (4.20-5.40); Red Cell Distribution Width 13.1 % (11.5-17.5); White Blood Count 5.9 K/mm3 (4.8-10.8)
[2024-02-11 18:49] LABS: Alanine Aminotransferase 26 U/L (12-78); Albumin Level 4.4 g/dl (3.5-5.0); Albumin/Globulin Ratio 1.8 (1.1-1.8); Alkaline Phosphatase 99 U/L (38-126); Anion Gap 9.3 mEq/L (5-15); Aspartate Amino Transferase 36 U/L (14-36); Bilirubin,Total 0.4 mg/dl (0.2-1.3); Blood Urea Nitrogen 15 mg/dl (7-17); Calcium 9.3 mg/dl (8.4-10.2); Carbon Dioxide 28 mmol/L (22.0-30.0); Chloride 105 mmol/L (98-107); Cholesterol 270 mg/dl (140-200); Estimated Glomerular Filt Rate 73 ml/min (>60); GFR (African American) 89 ML/MIN (>60); Globulin 2.5 g/dL (1.3-3.2); Glucose 88 mg/dl (74-100); Potassium 4.3 mmoL/L (3.5-5.1); Sodium 138 mmol/L (136-145); Total Protein,Serum 6.9 g/dl (6.3-8.2); Triglycerides 153 mg/dl (30-150); VLDL Cholesterol 31 mg/dL (0-40)
[2024-02-11 19:10] LABS: HDL Cholesterol 132 mg/dl (40-60)
[2024-02-11 19:12] LABS: 25-OH Vitamin D, Total 38.3 ng/mL (30-100)
[2024-02-11 19:16] LABS: Hemoglobin A1C 5.3 % (4.0-6.0)
[2024-02-11 19:23] LABS: Thyroid Stimulating Hormone 0.93 uIU/mL (0.465-4.68)
== END 2024-02-11 23:59 ==
LOC: LAB.DROPOF 18:06
PROVIDERS: PCP Physician Assistant; Visit Provider Physician Assistant
DX: R53.83 Other fatigue (principal); E05.90 Thyrotoxicosis, unspecified without thyrotoxic crisis or storm; E55.9 Vitamin D deficiency, unspecified; R73.09 Other abnormal glucose; E78.5 Hyperlipidemia, unspecified; Z68.27 Body mass index [BMI] 27.0-27.9, adult
CPT/HCPCS: 80053; 80061; 82306; 83036; 84443; 85025

== ENCOUNTER 2025-01-15 10:18 | Outpatient (CLI) | payer MEDICARE, SELFPAY ==
--- NOTE | 2025-01-15 10:19 | MM_ITS ---
PROCEDURE INFORMATION: Exam: MG Bilateral Screening 3D Mammography Exam date and time: 01/15/2025 10:27 AM Age: 59 years old Clinical indication: Screening exam. TECHNIQUE: Imaging protocol: Bilateral Screening tomosynthesis and 2D mammography including computer-aided detection (CAD) when performed. COMPARISON: 1. MG MM DIG SCREENING MAMM BI W/CAD 01/14/2024 2:35 PM 2. MG MM DIG SCREENING MAMM BI W/CAD 08/31/2022 3:13 PM FINDINGS: MAMMOGRAPHY: Breast composition: There are scattered areas of fibroglandular density. Mass: No suspicious masses. Architectural distortion: None. Calcifications: No suspicious calcifications. Asymmetric density: None. Skin thickening: None. Axillary adenopathy: None. IMPRESSION: No mammographic evidence of malignancy. Annual screening is recommended unless otherwise clinically indicated. ASSESSMENT: BI-RADS Category 1: Negative.
== END 2025-01-15 23:59 | disposition home or self-care (01) ==
LOC: RAD 10:19
PROVIDERS: PCP Obstetrics & Gynecology; Visit Provider Obstetrics & Gynecology
DX: Z12.31 Encounter for screening mammogram for malignant neoplasm of breast (principal)
CPT/HCPCS: 77063; 77067

== ENCOUNTER 2025-06-08 11:55 | Day surgery (SDC) | payer MEDICARE, SELFPAY ==
--- NOTE | 2025-06-08 12:00 | EXP.HP ---
History of Present Illness *Admission Date: 06/08/25 *Reason for visit:: Screening for colon cancer *History of present illness: Mrs. Keith is a 59-year-old female who is here for screening for colon cancer. It has been more than 10 years since her last colonoscopy. The examination is deemed medically necessary for screening colonoscopy. The patient has been seen, interviewed and examined prior to the procedure by both myself and the anesthesia provider. [facility] Disclaimer: The information contained in this section may have been updated after the patient was seen, as this information can be updated by other users. Medical History Premature ventricular contraction Tachycardia Bigeminal rhythm Abnormal Holter monitor finding Menopausal syndrome Effusion of facet joint of cervical spine Fibrocystic breast Obesity Insomnia Hypertension Anxiety Surgical History S/P endometrial ablation History of tubal ligation S/P left rotator cuff repair Family History Other Family history of cancer Lung cancer Social History Smoking Status: Never smoker alcohol intake: current alcohol intake frequency: a few times a month substance use type: denies use current occupational status: retired Travel in the last 8 weeks?: None household members: spouse housing: house 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 caffeine: Yes Have you lived/traveled outside [place] in past 30 days?: No Contact w/someone who lives/traveled outside [place] past 30 days?: No Exposure to someone with infectious disease in past 14 days?: No Do you have a fever (greater than 100.4 F or 38 C)?: No Have you tested positive for COVID-19?: No Exposed to someone with COVID-19 in past 14 days?: No Do you have a sore throat?: No Do you have a cough?: No Do you have any weakness?: No Are you experiencing any nausea/vomitting?: No Do you have any diarrhea?: No Are you experiencing any unusual bleeding?: No Do you have any muscle aches/pain?: No Do you have any abdominal pain?: No Are you experiencing loss of taste or smell?: No Other Medical History Have you received the Flu Vaccine for this season: Yes Have you received the Pneumonia Vaccine: No Review of Systems Review of Systems Review of systems (narrative): Negative *Cardiovascular Comments: Negative *Gastrointestinal Comments: Negative *Genitourinary Comments: Negative *Musculoskeletal Comments: Negative *Neurologic Comments: Negative Meds Home Medications and Allergies Home Medications ?Medication ?Instructions ?Recorded ?Confirmed ?Type lisinopril 20 mg tablet 20 mg PO DAILY #90 tabs 03/23/25 06/05/25 Rx escitalopram oxalate 20 mg tablet 20 mg PO DAILY 06/05/25 06/05/25 History (Lexapro) New Prescriptions to Start Prescriptions: Allergies Allergy/AdvReac Type Severity Reaction Status Date / Time No Known Allergies Allergy Verified 06/05/25 12:58 Exam Data for Last 24 hours I & O for Last 24 hours: Intake & Output 06/05/25 06/06/25 06/07/25 06/08/25 23:59 23:59 23:59 23:59 Weight 175 lb *Routine HEENT Exam Head: Present normocephalic Eye: Present EOMI and PERRL ENT: Present mucous membranes moist *Routine Neck Exam Neck: Present supple *Routine Respiratory Exam Respiratory: Present CTA bilaterally *Routine Cardiovascular Exam Cardiovascular: Present RRR *Routine Abdominal Exam Abdominal: Present soft and normoactive bowel sounds; Absent tenderness *Routine Rectal Exam Rectal:: deferred *Routine Genitalia Exam Genitalia:: deferred *Routine Extremities Exam Extremities: Absent cyanosis, clubbing or edema *Routine Skin Exam Skin: Present warm; Absent rash *Routine Neurological Exam Neurological: Present alert and oriented X3 Assessment and Plan *Assessment and plan (1) Colon cancer screening: Status: Acute Category: Medical Code(s): Z12.11 - Encounter for screening for malignant neoplasm of colon Plan A/P: 1. Screening for colon cancer is the preprocedural diagnosis. The patient will be anesthetized/sedated using MAC sedation. The patient has been seen and examined. Cardiac and lung assessment prior to the examination is stable. Proceed with planned screening colonoscopy.
[2025-06-08] MEDS: LACTATED RINGERS 1000ML 1,000 ML 50 ML IV (12:21)
[2025-06-08 12:23] VITALS: BP 128/88; PULSE 99; RESP 18; TEMP 36.7; O2SAT 100
--- NOTE | 2025-06-08 13:54 | EXP.ANES.CKL ---
[facility] Disclaimer: The information contained in this section may have been updated after the patient was seen, as this information can be updated by other users. Medical History Premature ventricular contraction Tachycardia Bigeminal rhythm Abnormal Holter monitor finding Menopausal syndrome Effusion of facet joint of cervical spine Fibrocystic breast Obesity Insomnia Hypertension Anxiety Surgical History S/P endometrial ablation History of tubal ligation S/P left rotator cuff repair Family History Other Family history of cancer Lung cancer Social History Smoking Status: Never smoker alcohol intake: current alcohol intake frequency: a few times a month substance use type: denies use current occupational status: retired Travel in the last 8 weeks?: None household members: spouse housing: house 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: Yes Have you lived/traveled outside [place] in past 30 days?: No Contact w/someone who lives/traveled outside [place] past 30 days?: No Exposure to someone with infectious disease in past 14 days?: No Do you have a fever (greater than 100.4 F or 38 C)?: No Have you tested positive for COVID-19?: No Exposed to someone with COVID-19 in past 14 days?: No Do you have a sore throat?: No Do you have a cough?: No Do you have any weakness?: No Are you experiencing any nausea/vomitting?: No Do you have any diarrhea?: No Are you experiencing any unusual bleeding?: No Do you have any muscle aches/pain?: No Do you have any abdominal pain?: No Are you experiencing loss of taste or smell?: No [facility] Anesthesia Checklist Patient Identification Patient Identification: Arm Band and Family Structural Data Admitted From: Home Planned Operative Procedure/s: Colonoscopy Verified Documents: Surgical Consent and History and Physical NPO Status Verified Time NPO: 00:00 Additional verifications Patient : No Anesthesia Reactions: No Hx Blood Transfusions: No Blood Transfusion Reaction: No Cephalosporin Allergy: No Previous Colonoscopy: Yes Airway Assessment Mallampati Score:: Class III C-Spine Mobility Assessed: Yes Dentition: Good Dentition Neurological Assessment Level of Consciousness: Alert, Appropriate and Follows Commands Hx Seizures: No Numbness or tingling in extremities: No Anesthesia Plan Anesthesia Risk discussed: Yes ASA Class: II Anesthesia Type: MAC Preoperative Comments Pre-Operative Comments: Hypertension...Lisinopril, Lexaprol.
--- NOTE | 2025-06-08 14:37 | P.PCN_ITS ---
[facility] Procedure Note Date: 06/08/25 Time: 14:56 Procedure Note:: Colonoscopy Procedure Report: Colonoscopy with cold snare polypectomy Endoscopist: Carlos Tan II, MD Referring physician: TOM Quiñones Date of Procedure: June 08, 2025 Equipment: Olympus [id number] adult colonoscope Sedation: MAC sedation Indication: Mrs. Keith is a 59-year-old female who is here for screening colonoscopy. Her last colonoscopy was more than 10 years ago. She reports no abdominal pain, weight loss, change in her bowel habits or rectal bleeding. She reports no family history of colon cancer. Procedure: Prior to the procedure, a history and physical exam was performed, and patient's medications and allergies were reviewed. The risks, benefits and alternatives of the sedation and procedure were discussed with the patient. All questions were answered and informed consent was obtained. The patient was brought to the procedure room. Patient identification and proposed procedure were verified by the physician and the nurse. The patient was placed in a left lateral decubitus position and the scope was passed under direct vision. Throughout the procedure, the patient's blood pressure, pulse, and oxygen saturations were monitored continuously. The colonoscopy was accomplished without difficulty. The patient tolerated the procedure well. Findings: On digital rectal examination there was normal rectal tone. There were no external hemorrhoids. The colonoscope was introduced through the anal canal to the rectum and advanced to the cecum. The ileocecal valve and appendiceal orifice were identified. The scope was advanced a short distance into the ileum which appeared grossly normal. The scope was then withdrawn into the colon. There were 2 polyps (cecum x 1 (5 mm) and ascending x 1 (10 mm)). These did have a mucous cap and were felt to be serrated adenomas. Both of these were removed via cold snare polypectomy. The remaining cecum, ascending, transverse, descending, sigmoid and rectum were grossly normal. There were no mucosal abnormalities identified. Upon retroflexion within the rectum there were grade 1-2 internal hemorrhoids. The preparation was excellent throughout with Herreid Preparation Score of 9. The cecal time was 12 minutes. Impression: 1. Colonic polyps x 2 (5 and 10 mm) 2. Grade 1-2 internal hemorrhoids Plan: I will follow-up the polyp histology and recommend repeat surveillance colonoscopy again in 5 years if the polyps are adenomatous.
[2025-06-08 14:56] VITALS: BP 86/56; PULSE 83; RESP 16; TEMP 36.1; O2SAT 97
[2025-06-08 15:06] VITALS: BP 90/58; PULSE 80; RESP 16; O2SAT 99
[2025-06-08 15:16] VITALS: BP 98/63; PULSE 77; RESP 16; O2SAT 100
[2025-06-08 15:26] VITALS: BP 100/69; PULSE 78; RESP 16; O2SAT 100
== END 2025-06-08 15:33 | disposition home or self-care (01) ==
PROVIDERS: PCP Nurse Practitioner Family; Visit Provider Internal Medicine Gastroenterology
PROC: 0DJD8ZZ Inspection of Lower Intestinal Tract, Via Natural or Artificial Opening Endoscopic (ICD-10-PCS; CPT 45378; principal; 2025-06-08 13:30)
DX: Z12.11 Encounter for screening for malignant neoplasm of colon (principal); K63.5 Polyp of colon; D12.2 Benign neoplasm of ascending colon; K64.0 First degree hemorrhoids; K64.1 Second degree hemorrhoids; I10 Essential (primary) hypertension; E66.9 Obesity, unspecified; Z79.899 Other long term (current) drug therapy
CPT/HCPCS: 45385; J2003; J2704; J7120